=== PATIENT | male | born 1980 ===

== ENCOUNTER 2017-03-23 08:47 | Emergency (ER) | payer MEDICAID ==
[~2017-03-23] VITALS: Ht 185.4 cm; Wt 86.6 kg
[2017-03-23 08:54] VITALS: Ht 185.4 cm; Wt 86.6 kg
[2017-03-23] MEDS ORDERED: SOD CHLORIDE 0.9% 1,000 ML IV STA (09:40)
[2017-03-23 10:30] LABS: BASOPHILS % 0.7 % (0.0-2.0); EOSINOPHILS # 0.1 10^3/ul (0.0-0.5); EOSINOPHILS % 2.9 % (0.0-7.0); HEMATOCRIT 46.8 % (42.0-52.0); HEMOGLOBIN 16.2 g/dl (14.0-18.0); LYMPHOCYTES # 1.6 10^3/ul (0.8-2.9); MEAN CORPUSCULAR HGB CONC 34.6 g/dl (32.0-37.0); MEAN CORPUSCULAR VOLUME 89.5 fl (82.0-101.0); MEAN PLATELET VOLUME 9.8 fl (7.4-10.4); MONOCYTE # 0.5 10^3/ul (0.3-0.9); MONOCYTES % 10.3 % (0.0-11.0); NEUTROPHIL # 2.2 10^3/ul (1.6-7.5); NEUTROPHILS % 49.9 % (39.0-77.0); PLATELET COUNT 219 10^3/UL (140-415); RED BLOOD COUNT 5.23 10^6/ul (4.70-6.10); WHITE BLOOD COUNT 4.5 10^3/ul (4.8-10.8)
--- NOTE | 2017-03-23 10:32 | RADRPT ---
PROCEDURE: XR Chest. CLINICAL INDICATION: chest pain TECHNIQUE: Single frontal view of the chest was obtained COMPARISON: None FINDINGS: The heart and mediastinum are within normal limits. The lungs are clear. There is no pleural effusion or pneumothorax. RPTAT: AA IMPRESSION: No acute disease. .Marco A Nunn MD, Date Time Electronically viewed and signed by .Marco A Nunn MD, on 03/23/2017 10:32 .S/
[2017-03-23 10:49] LABS: ALANINE AMINOTRANSFERASE 52 IU/L (13-69); ALBUMIN 4.7 g/dl (3.3-4.9); ALBUMIN/GLOBULIN RATIO 1.46; ALKALINE PHOSPHATASE 62 IU/L (42-121); ANION GAP 17 (8-16); ASPARTATE AMINO TRANSFERASE 32 IU/L (15-46); BILIRUBIN,INDIRECT 0.5 mg/dl (0-1.1); BILIRUBIN,TOTAL 0.5 mg/dl (0.2-1.3); BLOOD UREA NITROGEN 11 mg/dl (7-20); CALCIUM 9.5 mg/dl (8.4-10.2); CARBON DIOXIDE 29 mmol/L (21-31); CHLORIDE 103 mmol/L (97-110); CREATININE 0.91 mg/dl (0.61-1.24); GLUCOSE 92 mg/dl (70-220); SODIUM 145 mmol/L (135-144); TOTAL PROTEIN 7.9 g/dl (6.1-8.1)
[2017-03-23 10:59] LABS: TROPONIN-I < 0.012 ng/ml (0.00-0.12)
--- NOTE | 2017-03-23 11:23 | ERD ---
ER Documentation Chief Complaint Chief Complaint SUDDEN SOB FOLLOWED BY SYNCOPE TODAY AT 0810, DENIES TRAUMA HPI This is a 36-year-old male who presents to the emergency room for evaluation of almost fainting. The patient and the patient's were giving a history and state that this patient was eating breakfast and started to feel weak. He states that he then felt like he was going to pass out. The patient denied any chest pain or shortness of breath when this occurred. The patient states that he woke up and he was mildly short of breath however he states that he has no shortness of breath at this time. Denies any chest pain, nausea, vomiting. He was concerned and came to the ER for evaluation. Denies any aggravating factors for her symptoms and denies any relieving factors at this time ROS All systems reviewed and are negative except as per history of present illness. PMhx/Soc Medical and Surgical Hx: pt denies Medical Hx, pt denies Surgical Hx Hx Alcohol Use: No Hx Substance Use: No Hx Tobacco Use: No Smoking Status: Never smoker Physical Exam Vitals Vital Signs Date Time Temp Pulse Resp B/P Pulse Ox O2 Delivery O2 Flow Rate FiO2 03/23/17 10:00 64 20 103/23 98 Room Air 03/23/17 08:54 92.5 74 16 132/72 99 Physical Exam INITIAL VITAL SIGNS: Reviewed by me GENERAL: The patient is well developed and appropriate for usual state of health in no apparent distress HEENT: Pupils equal, round, and reactive to light. EOMI. There is no scleral icterus. NECK: C-spine is soft and supple, there is no meningismus. There is no cervical lymphadenopathy. LUNGS: Clear to auscultation bilaterally. There are no rales, wheezes or rhonchi. HEART: Regular rate and rhythm, no murmurs, clicks, rubs or gallops. ABDOMEN: Soft, non-tender, non-distended. There are bowel sounds in all four quadrants. No rebound or guarding. EXTREMITIES: There is no peripheral cyanosis or edema. No focal swelling or erythema. NEUROLOGICAL: The patient moves all four extremities with 5/5 strength. Cranial nerves II - XII are intact. Normal gait. Alert and oriented SKIN: There is no apparent rash or petechiae. HEME/LYMPHATIC: There is no evidence of excessive bruising or lymphedema. PSYCHIATRIC: The patient does not appear anxious or depressed. Result Diagram: 03/23/17 1000 03/23/17 1000 Results 24 hrs Laboratory Tests Test 03/23/17 09:42 03/23/17 10:00 Bedside Glucose 105mg/dL White Blood Count 4.510^3/ul Red Blood Count 5.2310^6/ul Hemoglobin 16.2g/dl Hematocrit 46.8% Mean Corpuscular Volume 89.5fl Mean Corpuscular Hemoglobin 31.0pg Mean Corpuscular Hemoglobin Concent 34.6g/dl Red Cell Distribution Width 12.0% Platelet Count 72121^3/UL Mean Platelet Volume 9.8fl Neutrophils % 49.9% Lymphocytes % 36.0% Monocytes % 10.3% Eosinophils % 2.9% Basophils % 0.7% Nucleated Red Blood Cells % 0.0/100WBC Neutrophils # 2.210^3/ul Lymphocytes # 1.610^3/ul Monocytes # 0.510^3/ul Eosinophils # 0.110^3/ul Basophils # 0.010^3/ul Nucleated Red Blood Cells # 0.010^3/ul Sodium Level 145mmol/L Potassium Level 4.0mmol/L Chloride Level 103mmol/L Carbon Dioxide Level 29mmol/L Anion Gap 17 Blood Urea Nitrogen 11mg/dl Creatinine 0.91mg/dl Glucose Level 92mg/dl Calcium Level 9.5mg/dl Total Bilirubin 0.5mg/dl Direct Bilirubin 0.00mg/dl Indirect Bilirubin 0.5mg/dl Aspartate Amino Transf (AST/SGOT) 32IU/L Alanine Aminotransferase (ALT/SGPT) 52IU/L Alkaline Phosphatase 62IU/L Troponin I < 0.012ng/ml Total Protein 7.9g/dl Albumin 4.7g/dl Globulin 3.20g/dl Albumin/Globulin Ratio 1.46 Lipase 67U/L Current Medications Medications (Trade) Dose Ordered Sig/Herbert Route PRN Reason Start Time Stop Time Status Last Admin Dose Admin Sodium Chloride (NS) 1,000 ml @ 1,000 mls/hr Q1H STAT IV 03/23/17 09:40 03/23/17 10:39 DC 03/23/17 09:40 Procedures/MDM EKG: Rate/Rhythm: [Normal Sinus Rhythm] QRS, ST, T-waves: [No changes consistent w/ acute ischemia] Impression: [No evidence of ischemia or arrhythmia] Chest X-ray 1V Interpreted by me: Soft Tissue: No acute abnormalities Bones: No acute abnormalities Mediastinum/Cardiac Silhouette/Lungs: [No acute abnormalities] This 36-year-old male presents to the ER for evaluation of presyncopal episode. On evaluation the patient was hemodynamically stable and nontoxic appearing. I did obtain an EKG which is nonischemic. Lab work was obtained including a troponin which is negative. His chest x-rays also clear. The patient was given 1 L of fluids and when I reevaluated the patient the patient was feeling much better. He denied any shortness of breath, nausea, vomiting or diarrhea. I doubt ACS at this time given this patient's heart score of 0. The patient is not hypoxic and I doubt PE at this time given his PERC score. Patient will be discharged at this time with a referral for outpatient clinics for placement of possible Holter monitor. His verbalized understanding and I advised them they can return to the ER any point for reevaluation and they verbalized understanding. PERC Criteria Assessment: Age > 50: No HR > 100: No 02 < 95%: No H/o DVT/PE: No Recent trauma/surgery: No Hemoptysis: No Exogenous Estrogen: No Unilateral Leg swelling: No Pretest probability > 15%: No [Less than 2% risk of PE. No further work up is necessary] Departure Diagnosis: Primary Impression: Pre-syncope Additional Impression: Generalized weakness Condition: Stable MEGAN BARRETT DO Mar 23, 2017 11:23
[2017-03-23 11:54] VITALS: BP 126/74; PULSE 63; RESP 18; TEMP 98.7
== END 2017-03-23 11:56 | disposition home or self-care (01) ==
LOC: E/R 08:47
DX: R55 Syncope and collapse (principal); R53.1 Weakness
CPT/HCPCS: 36415; 71010; 80053; 82962; 83690; 84484; 85025; 93005; J7030; Z7502; Z7610